=== PATIENT | female | born 2000 | race Caucasian/White ===

== ENCOUNTER 2020-01-16 19:00 | Emergency (ER) | payer OTHER ==
[~2020-01-16] VITALS: Ht 154.9 cm; Wt 52.2 kg
[2020-01-16 19:05] VITALS: BP 110/75
--- NOTE | 2020-01-16 19:27 | NUR ---
pt ambulated to bed 6.
--- NOTE | 2020-01-16 19:32 | NUR ---
BIB SELF REPORTS SHE HAS HAD A TAMPON IN HER VAGINA SINCE TUESDAY NIGHT AND HAS NOT BEEN UNABLE TO REMOVE IT HERSLEF. STATES IT HAS BEEN IN SINCE TUESDAY NIGHT. REPORTS HAVE VAGINAL PAIN AND FEVERS. NO OTHER SYMPTOMS REPORTED. NO BLEEDING OR DISCHARGE REPORTED. NO HX. SITTING UP IN BED, GIVEN GOWN.
--- NOTE | 2020-01-16 19:38 | NUR ---
PELVIC SET UP AT BEDSIDE.
--- NOTE | 2020-01-16 19:41 | NUR ---
Dr. Jay examining patient.
--- NOTE | 2020-01-16 20:00 | NUR ---
U/S TECH STATES PATIENT NEEDS A FULL BLADDER FOR EXAM. WILL COLLECT URINE SAMPLE AFTER U/S COMPLETED.
--- NOTE | 2020-01-16 20:14 | NUR ---
SPORTS ACTIVITIES FOUL JUDGE AT BEDSIDE
--- NOTE | 2020-01-16 20:37 | NUR ---
Ultrasound at bedside.
[2020-01-16 20:51] LABS: APPEARANCE,URINE CLEAR (CLEAR); BILIRUBIN,URINE NEGATIVE (NEGATIVE); BLOOD, URINE 1+ (NEGATIVE); LEUKOCYTE ESTERASE ,URINE NEGATIVE (NEGATIVE); NITRITE, URINE NEGATIVE (NEGATIVE); PH,URINE 5.5 (5.0-9.0); UGLUCOSE NEGATIVE (NEGATIVE)
[2020-01-16 20:52] LABS: BASOPHILS % (AUTO) 0.5 % (0.0-2.0); EOSINOPHILS # (AUTO) 0.1 K/uL (0-0.4); EOSINOPHILS % (AUTO) 2.5 % (0.0-4.0); HEMATOCRIT 37.3 % (36-48); HEMOGLOBIN 11.9 g/dL (12.0-16.0); LYMPHOCYTES # (AUTO) 1.8 K/uL (2.5-16.5); LYMPHOCYTES % (AUTO) 31.7 % (20.5-51.1); MEAN CORPUSCULAR HEMOGLOBIN 27 pg (27-31); MEAN CORPUSCULAR HGB CONC 32 g/dL (33-37); MEAN CORPUSCULAR VOLUME 84.9 fL (80-94); MONOCYTES # (AUTO) 0.6 K/uL (0.8-1.0); MONOCYTES % (AUTO) 10.7 % (1.7-9.3); NEUTROPHILS # (AUTO) 3.2 K/uL (1.8-7.7); NEUTROPHILS % (AUTO) 54.6 % (42.2-75.2); PLATELET COUNT (AUTO) 361 K/uL (140-450); RED BLOOD CELL COUNT(AUTO) 4.39 MIL/uL (4.20-5.40); RED CELL DISTRIBUTION WIDTH 17.7 % (11.6-13.7); WHITE BLOOD COUNT (AUTO) 5.8 K/uL (4.5-11.0)
[2020-01-16 20:53] LABS: COLOR,URINE STRAW (YELLOW)
[2020-01-16 21:08] LABS: RBC,URINE NONE SEEN /HPF (0-5); WBC,URINE 0-5 /HPF (0-5)
[2020-01-16 21:20] LABS: ALBUMIN 3.7 g/dL (3.4-5.0); ANION GAP 13.4 (8-16); CARBON DIOXIDE 28.5 mmol/L (21-32); CREATININE 0.7 mg/dL (0.6-1.3); POTASSIUM 3.9 mmol/L (3.5-5.1); TOTAL BILIRUBIN 0.3 mg/dL (0.0-1.0)
[2020-01-16] MEDS ORDERED: cefTRIAXone 250 MG in LIDOCAINE MPF 1% 0.9 ML IM ONE (21:35)
[2020-01-16] MEDS ORDERED: LIDOCAINE MPF 1% 5 ML ONE (21:37)
[2020-01-16] MEDS ORDERED: cefTRIAXone 250 MG VIAL ONE (21:37)
[2020-01-16 22:03] VITALS: BP 108/72
--- NOTE | 2020-01-16 22:03 | NUR ---
Patient discharged with v/s stable. Written and verbal after care instructions given and explained. Patient alert, oriented and verbalized understanding of instructions. Ambulatory with steady gait. All questions addressed prior to discharge. ID band removed. Patient advised to follow up with PMD. Rx of IBUPROFEN, DOCYCYCLINE given. Patient educated on indication of medication including possible reaction and side effects. Opportunity to ask questions provided and answered.
== END 2020-01-16 22:03 | disposition home or self-care (01) ==
LOC: MED 19:00
DX: N93.9 Abnormal uterine and vaginal bleeding, unspecified (principal); R30.0 Dysuria; R10.2 Pelvic and perineal pain
CPT/HCPCS: 36415; 76856; 80053; 81001; 81025; 84702; 85025; 93976; 96372; 99284; J0696; J2001; Q0092

== ENCOUNTER 2020-01-21 14:14 | Emergency (ER) | payer OTHER ==
[~2020-01-21] VITALS: Ht 154.9 cm; Wt 49.9 kg
[2020-01-21 14:46] VITALS: BP 133/86
[2020-01-21] MEDS ORDERED: NACL 0.9% 1,000 ML IV ONE ×3 (14:50→18:50)
[2020-01-21 16:03] LABS: BASOPHILS % (AUTO) 0.5 % (0.0-2.0); EOSINOPHILS % (AUTO) 0.5 % (0.0-4.0); HEMATOCRIT 38.9 % (36-48); HEMOGLOBIN 12.6 g/dL (12.0-16.0); LYMPHOCYTES # (AUTO) 1.3 K/uL (2.5-16.5); LYMPHOCYTES % (AUTO) 37.3 % (20.5-51.1); MEAN CORPUSCULAR HEMOGLOBIN 27 pg (27-31); MEAN CORPUSCULAR HGB CONC 33 g/dL (33-37); MEAN CORPUSCULAR VOLUME 84.4 fL (80-94); MONOCYTES # (AUTO) 0.2 K/uL (0.8-1.0); MONOCYTES % (AUTO) 6.3 % (1.7-9.3); NEUTROPHILS # (AUTO) 1.9 K/uL (1.8-7.7); NEUTROPHILS % (AUTO) 55.4 % (42.2-75.2); PLATELET COUNT (AUTO) 359 K/uL (140-450); RED BLOOD CELL COUNT(AUTO) 4.62 MIL/uL (4.20-5.40); RED CELL DISTRIBUTION WIDTH 18.7 % (11.6-13.7); WHITE BLOOD COUNT (AUTO) 3.4 K/uL (4.5-11.0)
[2020-01-21 16:23] LABS: ANION GAP 16.3 (8-16); CARBON DIOXIDE 26.3 mmol/L (21-32); CHLORIDE 107 mmol/L (98-107); CREATININE 0.7 mg/dL (0.6-1.3); GFR ARICAN-AMERICAN 139 mL/min (>90); GLUCOSE 102 mg/dL (74-106); POTASSIUM 3.6 mmol/L (3.5-5.1); SODIUM SERUM 146 mmol/L (136-145); UREA NITROGEN, BLOOD 4 mg/dL (7-18)
[2020-01-21 16:32] LABS: ALBUMIN 3.8 g/dL (3.4-5.0); ASPARTATE AMINOTRANSFERASE 34 U/L (15-37); TOTAL BILIRUBIN 0.2 mg/dL (0.0-1.0)
[2020-01-21 16:38] LABS: SALICYLATE < 2.8 mg/dL (2.8-20.0)
[2020-01-21 16:39] LABS: ACETAMINOPHEN < 0.5 ug/ml (10-30)
[2020-01-21 20:45] LABS: BARBITURATE, URINE NEGATIVE ng/ml (NEG <=200); BENZODIAZEPINE, URINE NEGATIVE ng/mL (NEG <=200); COCAINE, URINE POSITIVE ng/mL (NEG <=300)
[2020-01-21 20:46] LABS: CANNABINOID, URINE NEGATIVE ng/mL (NEG <=50); OPIATE, URINE NEGATIVE ng/mL (NEG <=2000); PHENCYCLIDINE SCREEN,URINE NEGATIVE ng/mL (NEG <=25)
[2020-01-21 20:50] LABS: APPEARANCE,URINE CLEAR (CLEAR); BILIRUBIN,URINE NEGATIVE (NEGATIVE); BLOOD, URINE NEGATIVE (NEGATIVE); LEUKOCYTE ESTERASE ,URINE NEGATIVE (NEGATIVE); NITRITE, URINE NEGATIVE (NEGATIVE); UGLUCOSE NEGATIVE (NEGATIVE)
[2020-01-21 21:00] LABS: COLOR,URINE STRAW (YELLOW)
[2020-01-21 21:49] VITALS: BP 110/72
== END 2020-01-21 21:51 | disposition home or self-care (01) ==
LOC: MED 14:14
DX: F17.210 Nicotine dependence, cigarettes, uncomplicated (principal); F32.9 Major depressive disorder, single episode, unspecified; Y90.8 Blood alcohol level of 240 mg/100 ml or more
CPT/HCPCS: 36415; 80053; 80305; 81003; 81025; 85025; 96360; 96361; 99283; G0480; G0482; J7030

== ENCOUNTER 2020-08-06 11:39 | Emergency (ER) | payer OTHER ==
[~2020-08-06] VITALS: Ht 162.6 cm; Wt 56.7 kg
[2020-08-06 11:48] VITALS: BP 132/68
--- NOTE | 2020-08-06 12:04 | NUR ---
19 YEAR OLD FEMALE COMPLAINS OF SOB, COUGH, AND SORE THROAT X YESTERDAY. PT STATES THAT SHE IS UNAWARE OF COVID CONTACT. PT AOX4, BREATHING EVEN AND UNLABORED, SPO2 100% ON RA, RR 20, LUNGS CLEAR BL, SKIN WARM AND DRY. BED IN LOWEST POSITION,LOCKED, BED RAIL UPX1. PMH - DENIES ALLERGIES - NKA
[2020-08-06] MEDS ORDERED: KETOROLAC 15 MG/ML VIAL IM STA (13:01)
--- NOTE | 2020-08-06 13:01 | NUR ---
PT ALERT AND AWAKE, BREATHING EVEN AND UNLABORED. NO DISTRESS NOTED.
[2020-08-06] MEDS ORDERED: diazePAM 5 MG TAB PO ONE (13:05)
--- NOTE | 2020-08-06 13:20 | NUR ---
X-Ray at bedside.
[2020-08-06 13:21] LABS: BASOPHILS % (AUTO) 0.7 % (0.0-2.0); EOSINOPHILS # (AUTO) 0.1 K/uL (0-0.4); EOSINOPHILS % (AUTO) 1.2 % (0.0-4.0); HEMATOCRIT 37.2 % (36-48); LYMPHOCYTES # (AUTO) 0.8 K/uL (2.5-16.5); LYMPHOCYTES % (AUTO) 12.2 % (20.5-51.1); MEAN CORPUSCULAR HEMOGLOBIN 26 pg (27-31); MEAN CORPUSCULAR HGB CONC 32 g/dL (33-37); MEAN CORPUSCULAR VOLUME 79.6 fL (80-94); MONOCYTES # (AUTO) 0.6 K/uL (0.8-1.0); MONOCYTES % (AUTO) 9.9 % (1.7-9.3); NEUTROPHILS # (AUTO) 4.8 K/uL (1.8-7.7); PLATELET COUNT (AUTO) 370 K/uL (140-450); RED BLOOD CELL COUNT(AUTO) 4.68 MIL/uL (4.20-5.40); RED CELL DISTRIBUTION WIDTH 19.1 % (11.6-13.7); WHITE BLOOD COUNT (AUTO) 6.3 K/uL (4.5-11.0)
[2020-08-06 13:37] LABS: ALBUMIN 3.5 g/dL (3.4-5.0); ANION GAP 16.3 (8-16); CARBON DIOXIDE 25.7 mmol/L (21-32); CREATININE 0.7 mg/dL (0.6-1.3); TOTAL BILIRUBIN 0.8 mg/dL (0.0-1.0)
--- NOTE | 2020-08-06 14:00 | NUR ---
Patient discharged with v/s stable. Written and verbal after care instructions about nonspecific chest pain given and explained. Patient verbalized understanding. Ambulatory with steady gait. All questions addressed prior to discharge. Advised to follow up with PMD.
[2020-08-06 14:01] VITALS: BP 114/83
== END 2020-08-06 14:00 | disposition home or self-care (01) ==
LOC: MED 11:39
DX: R07.9 Chest pain, unspecified (principal); E11.9 Type 2 diabetes mellitus without complications
CPT/HCPCS: 36415; 71045; 80053; 84484; 85025; 85379; 87426; 93005; 96372; 99285; J1885; Q0092

== ENCOUNTER 2020-12-11 18:49 | Emergency (ER) | payer OTHER ==
[~2020-12-11] VITALS: Ht 154.9 cm; Wt 49.9 kg
[2020-12-11 18:57] VITALS: BP 142/82
--- NOTE | 2020-12-11 19:03 | NUR ---
PATIENT AMBULATED TO BED 3.
--- NOTE | 2020-12-11 19:10 | NUR ---
PATIENT PRESENTS TO ED WITH C/O CP . PT STATES "I CANT BREATH" , O2 SAT = 100%. DENIES N/V/D; SKIN IS PINK/WARM/DRY; AAOX4, IS VERY ANXIOUS AND WRESTLESS. SPEECH IS RAPID. LUNGS CLEAR BL; HR EVEN, RAPID AND REGULAR; PT DENIES ANY FEVER, CP, SOB, OR COUGH AT THIS TIME; PATIENT STATES PAIN OF 10/10 AT THIS TIME; VSS; PATIENT POSITIONED FOR COMFORT; HOB ELEVATED; BEDRAILS UP X2; BED DOWN. ER MD MADE AWARE OF PT STATUS. PT STATES (+) METH USE TODAY AND DRINKS 2-3 MONSTER DRINKS
--- NOTE | 2020-12-11 19:15 | NUR ---
DR. KIM AT BEDSIDE FOR EXAM AND EVAL.
[2020-12-11] MEDS ORDERED: ONDANSETRON 4 MG/2 ML VIAL IVP ONE (19:20)
[2020-12-11] MEDS ORDERED: MIDAZOLAM 2 MG/2 ML VIAL IVP ONE (19:20)
--- NOTE | 2020-12-11 19:25 | NUR ---
AMBULATED TO WITH STEADY GAIT, RETURNED TO [facility]. ATTACHED TO CM = ST
--- NOTE | 2020-12-11 19:35 | NUR ---
18G SL ESTABLISHED LEFT A/C, LABS DRAWN
[2020-12-11 19:44] LABS: BASOPHILS % (AUTO) 0.2 % (0.0-2.0); EOSINOPHILS % (AUTO) 0.1 % (0.0-4.0); HEMATOCRIT 35.5 % (36-48); HEMOGLOBIN 11.1 g/dL (12.0-16.0); LYMPHOCYTES # (AUTO) 1.3 K/uL (2.5-16.5); LYMPHOCYTES % (AUTO) 17.9 % (20.5-51.1); MEAN CORPUSCULAR HEMOGLOBIN 25 pg (27-31); MEAN CORPUSCULAR HGB CONC 31 g/dL (33-37); MEAN CORPUSCULAR VOLUME 78.2 fL (80-94); MONOCYTES # (AUTO) 0.8 K/uL (0.8-1.0); MONOCYTES % (AUTO) 10.6 % (1.7-9.3); NEUTROPHILS # (AUTO) 5.2 K/uL (1.8-7.7); NEUTROPHILS % (AUTO) 71.2 % (42.2-75.2); PLATELET COUNT (AUTO) 445 K/uL (140-450); RED BLOOD CELL COUNT(AUTO) 4.54 MIL/uL (4.20-5.40); RED CELL DISTRIBUTION WIDTH 19.8 % (11.6-13.7); WHITE BLOOD COUNT (AUTO) 7.3 K/uL (4.5-11.0)
[2020-12-11 20:01] LABS: ALBUMIN 4.1 g/dL (3.4-5.0); ANION GAP 17.7 (8-16); CARBON DIOXIDE 21.5 mmol/L (21-32); CREATININE 0.8 mg/dL (0.6-1.3); POTASSIUM 3.2 mmol/L (3.5-5.1); TOTAL BILIRUBIN 0.4 mg/dL (0.0-1.0)
[2020-12-11 21:15] VITALS: BP 127/86
--- NOTE | 2020-12-11 21:15 | NUR ---
Patient discharged with v/s stable. Written and verbal after care instructions given and explained. Patient verbalized understanding. Ambulatory with steady gait. All questions addressed prior to discharge. Advised to follow up with PMD.
== END 2020-12-11 21:15 | disposition home or self-care (01) ==
LOC: MED 18:49
DX: R07.9 Chest pain, unspecified (principal); E11.9 Type 2 diabetes mellitus without complications; F12.10 Cannabis abuse, uncomplicated
CPT/HCPCS: 36415; 71045; 80053; 84484; 85025; 93005; 96374; 96375; 99285; J2250; J2405; 99284

== ENCOUNTER 2021-03-26 21:25 | Emergency (ER) | payer OTHER, SELFPAY ==
[~2021-03-26] VITALS: Ht 154.9 cm; Wt 47.2 kg
[2021-03-26 21:40] VITALS: BP 112/80
--- NOTE | 2021-03-26 21:40 | NUR ---
TO BED AMBULATORY
--- NOTE | 2021-03-26 21:47 | NUR ---
20 y.o female presents with abdominal pain. positive for N/V/D, fever, chills. new onset of c/p. 08/16 feels like pressure. patient tiok ibuprofen 2hrs ago, nyquil 4hrs ago. pt recently admited some time early this week and left AMA. PMH: Hernial repair 9yrs ago Allergies: nka
--- NOTE | 2021-03-26 22:18 | NUR ---
ERMD at bedside for examination
--- NOTE | 2021-03-26 22:43 | NUR ---
lab at bedside for blood collection
[2021-03-26 22:49] LABS: EOSINOPHILS # (AUTO) 0.2 K/uL (0-0.4); EOSINOPHILS % (AUTO) 4.9 % (0.0-4.0); HEMATOCRIT 34.7 % (36-48); HEMOGLOBIN 11.1 g/dL (12.0-16.0); LYMPHOCYTES # (AUTO) 1.1 K/uL (2.5-16.5); LYMPHOCYTES % (AUTO) 25.2 % (20.5-51.1); MEAN CORPUSCULAR HEMOGLOBIN 25 pg (27-31); MEAN CORPUSCULAR HGB CONC 32 g/dL (33-37); MEAN CORPUSCULAR VOLUME 78.3 fL (80-94); MONOCYTES # (AUTO) 0.7 K/uL (0.8-1.0); MONOCYTES % (AUTO) 15.1 % (1.7-9.3); NEUTROPHILS # (AUTO) 2.4 K/uL (1.8-7.7); NEUTROPHILS % (AUTO) 53.8 % (42.2-75.2); PLATELET COUNT (AUTO) 261 K/uL (140-450); RED BLOOD CELL COUNT(AUTO) 4.43 MIL/uL (4.20-5.40); RED CELL DISTRIBUTION WIDTH 19.8 % (11.6-13.7); WHITE BLOOD COUNT (AUTO) 4.5 K/uL (4.5-11.0)
[2021-03-26 23:04] LABS: ALBUMIN 3.3 g/dL (3.4-5.0); ANION GAP 14.8 (8-16); CARBON DIOXIDE 25.1 mmol/L (21-32); CREATININE 0.7 mg/dL (0.6-1.3); POTASSIUM 3.9 mmol/L (3.5-5.1); TOTAL BILIRUBIN 0.3 mg/dL (0.0-1.0)
--- NOTE | 2021-03-26 23:36 | NUR ---
Dr. Downey examining patient.
--- NOTE | 2021-03-27 00:15 | NUR ---
US AT BEDSIDE
[2021-03-27] MEDS: HYDROcodone/APAP 5/325 MG 1 TAB TAB PO ONE (00:17)
--- NOTE | 2021-03-27 00:48 | NUR ---
XRAY AT BEDSIDE
--- NOTE | 2021-03-27 00:50 | NUR ---
BRITTANY and RN at bedside for cultures of the pelvis and for wet mount
--- NOTE | 2021-03-27 01:00 | NUR ---
WET MOUNT AND CULTURE COLLECTED AND WALKED TO LAB. HAND GIVEN TO RALPH VILLANUEVA TECH.
--- NOTE | 2021-03-27 02:00 | NUR ---
Patient appears to be resting comfortably in bed. Vital Signs within normal limits. Respirations even and unlabored.
[2021-03-27] MEDS ORDERED: CLIN300C2 PO (02:44)
[2021-03-27 03:03] VITALS: BP 108/73
--- NOTE | 2021-03-27 03:03 | NUR ---
Patient discharged with v/s stable. Written and verbal after care instructions given and explained. Patient alert, oriented and verbalized understanding of instructions. Ambulatory with steady gait. All questions addressed prior to discharge. ID band removed. Patient advised to follow up with PMD. Rx of CLINDAMYCIN HCL given. Patient educated on indication of medication including possible reaction and side effects. Opportunity to ask questions provided and answered.
== END 2021-03-27 03:03 | disposition home or self-care (01) ==
LOC: MED 21:25
DX: N76.0 Acute vaginitis (principal); B96.89 Other specified bacterial agents as the cause of diseases classified elsewhere
CPT/HCPCS: 36415; 71045; 76830; 80053; 81002; 81025; 83690; 85025; 87210; 93005; 99285

== ENCOUNTER 2021-08-17 12:36 | Emergency (ER) | payer OTHER, SELFPAY ==
[~2021-08-17] VITALS: Ht 157.5 cm; Wt 53.1 kg
[~2021-08-17 12:36] MED LIST: CLIN300C2 PO
[2021-08-17 12:59] VITALS: BP 130/79
--- NOTE | 2021-08-17 13:08 | NUR ---
Pt ambulated to bed 09.
--- NOTE | 2021-08-17 13:22 | NUR ---
DR DOMINGUEZ EXAMINING PT
[2021-08-17 13:55] VITALS: BP 130/79
--- NOTE | 2021-08-17 13:55 | NUR ---
Patient discharged with v/s stable. Written and verbal after care instructions given and explained. Patient alert, oriented and verbalized understanding of instructions. Ambulatory with steady gait. All questions addressed prior to discharge. ID band removed. Patient advised to follow up with PMD. Opportunity to ask questions provided and answered.
== END 2021-08-17 13:55 | disposition home or self-care (01) ==
LOC: MED 12:36
DX: S16.1XXA Strain of muscle, fascia and tendon at neck level, initial encounter (principal); J45.909 Unspecified asthma, uncomplicated; Z79.899 Other long term (current) drug therapy; W19.XXXA Unspecified fall, initial encounter; Y93.89 Activity, other specified; Y92.89 Other specified places as the place of occurrence of the external cause; Y99.8 Other external cause status
CPT/HCPCS: 81002; 81025; 99282

== ENCOUNTER 2022-10-28 10:51 | Emergency (ER) | payer OTHER ==
[~2022-10-28] VITALS: Ht 154.9 cm; Wt 52.2 kg
--- NOTE | 2022-10-28 11:17 | NUR ---
pt to phong hardin
[2022-10-28 11:19] VITALS: BP 116/63
[2022-10-28 12:19] LABS: BASOPHILS % (AUTO) 0.3 % (0.0-2.0); EOSINOPHILS # (AUTO) 0.1 K/uL (0-0.4); HEMATOCRIT 33.6 % (36-48); HEMOGLOBIN 10.6 g/dL (12.0-16.0); LYMPHOCYTES # (AUTO) 0.8 K/uL (2.5-16.5); MEAN CORPUSCULAR HEMOGLOBIN 24 pg (27-31); MEAN CORPUSCULAR HGB CONC 32 g/dL (33-37); MEAN CORPUSCULAR VOLUME 75.2 fL (80-94); MONOCYTES # (AUTO) 0.5 K/uL (0.8-1.0); NEUTROPHILS # (AUTO) 4.3 K/uL (1.8-7.7); NEUTROPHILS % (AUTO) 75.7 % (42.2-75.2); PLATELET COUNT (AUTO) 405 K/uL (140-450); RED BLOOD CELL COUNT(AUTO) 4.46 MIL/uL (4.20-5.40); RED CELL DISTRIBUTION WIDTH 24.1 % (11.6-13.7); WHITE BLOOD COUNT (AUTO) 5.7 K/uL (4.8-10.8)
--- NOTE | 2022-10-28 12:35 | NUR ---
PATIENT AMBULATED TO BED 12.
[2022-10-28 12:38] LABS: ALBUMIN 3.7 g/dL (3.4-5.0); ANION GAP 13.2 (8-16); CARBON DIOXIDE 27.4 mmol/L (21-32); CREATININE 0.6 mg/dL (0.6-1.3); POTASSIUM 3.6 mmol/L (3.5-5.1)
--- NOTE | 2022-10-28 13:02 | NUR ---
ULTRASOUND AT BEDSIDE
[2022-10-28 13:35] LABS: BILIRUBIN,URINE 2+ (NEGATIVE); BLOOD, URINE 3+ (NEGATIVE); COLOR,URINE YELLOW (YELLOW); LEUKOCYTE ESTERASE ,URINE TRACE (NEGATIVE); NITRITE, URINE POSITIVE (NEGATIVE); UGLUCOSE TRACE (NEGATIVE)
[2022-10-28 13:43] LABS: APPEARANCE,URINE SLIGHTLY HAZY (CLEAR)
[2022-10-28 13:44] LABS: RBC,URINE 0-5 /HPF (0-5)
[2022-10-28] MEDS ORDERED: NITR100C7 PO (14:22)
[2022-10-28 14:40] VITALS: BP 114/82
--- NOTE | 2022-10-28 14:40 | NUR ---
Patient discharged with v/s stable. Written and verbal after care instructions ABOUT UTI given and explained. Patient alert, oriented and verbalized understanding of instructions. Ambulatory with steady gait. All questions addressed prior to discharge. ID band removed. Patient advised to follow up with PMD. Rx of MACROBID given. Patient educated on indication of medication including possible reaction and side effects. Opportunity to ask questions provided and answered.
== END 2022-10-28 14:40 | disposition home or self-care (01) ==
LOC: MED 10:51
DX: O23.41 Unspecified infection of urinary tract in pregnancy, first trimester (principal); O20.8 Other hemorrhage in early pregnancy; J45.909 Unspecified asthma, uncomplicated; Z79.899 Other long term (current) drug therapy
CPT/HCPCS: 36415; 76817; 80053; 81001; 81025; 84702; 85025; 86900; 86901; 87086; 99284; Q0092

== ENCOUNTER 2024-07-06 13:07 | Emergency (ER) | payer MEDICAID, OTHER ==
[~2024-07-06] VITALS: Ht 154.9 cm; Wt 54.4 kg
[~2024-07-06 13:07] MED LIST changes: +NITR100C7 PO
[2024-07-06 13:11] VITALS: BP 94/60; PULSE 88; RESP 18; TEMP 98.3; O2SAT 98
--- NOTE | 2024-07-06 13:17 | NUR ---
JO-ANN ALS TO ER BED 1
[2024-07-06 13:30] VITALS: O2SAT 98
--- NOTE | 2024-07-06 13:30 | NUR ---
23YO FEMALE PT [facility] INTOXICATION. PER EMS, PT FOUND IN ALLEY W/ EMPTY ALCOHOL CANS. ON ARRIVAL, PT AAOX1 TO PLACE W/ DELAYED MUMBLED SPEECH. AMB W/ UNSTEADY GAIT. +DIZZINESS. DENIES N/V/D, CHEST PAIN, SOB, INJURY OR CHANGE IN VISION. ON [employer]ER. BED AT LOWEST POSITION, BED RAILS UPX2. CALL LIGHT WITHIN REACH. HX: UNOBTAINABLE ALLERGIES: UNOBTAINABLE
--- NOTE | 2024-07-06 13:47 | NUR ---
MD WOOD AT BEDSIDE FOR EVALUATION
--- NOTE | 2024-07-06 13:50 | NUR ---
pt amb w/ assist to restroom Addendum: 07/06/24 at 1407 by PHSEP pt amb w/ assist back to bed.
[2024-07-06 15:10] VITALS: BP 109/61; PULSE 72; RESP 16; TEMP 98.3; O2SAT 99
--- NOTE | 2024-07-06 15:22 | NUR ---
pt at rest w/ eyes closed. respirations even and unlabored. bed at lowest position, bed rails upx2. call light within reach.
--- NOTE | 2024-07-06 17:06 | NUR ---
pt AAOx3 . amb w/ steady gait. denies dizziness or nausea at this time.
--- NOTE | 2024-07-06 17:11 | NUR ---
Patient discharged with v/s stable. Written and verbal after care instructions given FOR ALC INTOXICATION Patient verbalized understanding. Ambulatory with steady gait. All questions addressed prior to discharge. Advised to follow up with PMD.
--- NOTE | 2024-07-06 17:46 | NUR ---
Chart checked and completed. The patient's care was reviewed and supervised by SIMA HAYS RN.
== END 2024-07-06 17:11 | disposition home or self-care (01) ==
LOC: MED 13:07
DX: F10.129 Alcohol abuse with intoxication, unspecified (principal); Y90.9 Presence of alcohol in blood, level not specified; J45.909 Unspecified asthma, uncomplicated; Z79.899 Other long term (current) drug therapy
CPT/HCPCS: 99283

== ENCOUNTER 2024-07-18 23:30 | Emergency (ER) | payer MEDICAID ==
[~2024-07-18] VITALS: Ht 154.9 cm; Wt 47.2 kg
[2024-07-18 23:46] VITALS: BP 137/111; PULSE 88; RESP 20; TEMP 96.7; O2SAT 98
[2024-07-19] MEDS: ONDANSETRON 4 MG/2 ML VIAL IVP ONE ×2 (00:43→06:45)
[2024-07-19] MEDS: MORPHINE SULFATE 4 MG/ML SYR IVP ONE ×2 (00:44→06:45)
[2024-07-19] MEDS: NACL 0.9% 1,000 ML IV ONE (00:44)
[2024-07-19 00:47] LABS: BASOPHILS % (AUTO) 0.2 % (0.0-2.0); HEMATOCRIT 35.8 % (36-48); HEMOGLOBIN 11.8 g/dL (12.0-16.0); LYMPHOCYTES # (AUTO) 0.9 K/uL (2.5-16.5); LYMPHOCYTES % (AUTO) 7.5 % (20.5-51.1); MEAN CORPUSCULAR HEMOGLOBIN 28 pg (27-31); MEAN CORPUSCULAR HGB CONC 33 g/dL (33-37); MEAN CORPUSCULAR VOLUME 84.2 fL (80-94); MONOCYTES % (AUTO) 9.1 % (1.7-9.3); NEUTROPHILS # (AUTO) 9.6 K/uL (1.8-7.7); NEUTROPHILS % (AUTO) 83.2 % (42.2-75.2); PLATELET COUNT (AUTO) 301 K/uL (140-450); RED BLOOD CELL COUNT(AUTO) 4.25 MIL/uL (4.20-5.40); RED CELL DISTRIBUTION WIDTH 28.3 % (11.6-13.7); WHITE BLOOD COUNT (AUTO) 11.5 K/uL (4.8-10.8)
[2024-07-19 00:51] VITALS: O2SAT 100
[2024-07-19] MEDS: LORazepam 2 MG/ML VIAL IVP ONE (00:51)
[2024-07-19 01:04] LABS: ANION GAP 17.9 (8-16); CALCIUM 9.3 mg/dL (8.5-10.1); CARBON DIOXIDE 24.2 mmol/L (21-32); CREATININE 0.8 mg/dL (0.6-1.3); POTASSIUM 3.1 mmol/L (3.5-5.1)
[2024-07-19 01:08] LABS: ALANINE AMINOTRANSFERASE 46 U/L (12-78); ALBUMIN 3.7 g/dL (3.4-5.0); ALKALINE PHOSPHATASE 116 U/L (50-136); ASPARTATE AMINOTRANSFERASE 43 U/L (15-37); BILIRUBIN,DIRECT 0.2 mg/dL (0.0-0.3); TOTAL BILIRUBIN 1.1 mg/dL (0.0-1.0); TOTAL PROTEIN, SERUM 7.6 g/dL (6.4-8.2)
[2024-07-19 02:50] VITALS: O2SAT 100
[2024-07-19 05:55] VITALS: O2SAT 100
[2024-07-19 06:23] LABS: APPEARANCE,URINE CLEAR (CLEAR); BILIRUBIN,URINE NEGATIVE (NEGATIVE); BLOOD, URINE NEGATIVE (NEGATIVE); COLOR,URINE YELLOW (YELLOW); LEUKOCYTE ESTERASE ,URINE NEGATIVE (NEGATIVE); NITRITE, URINE NEGATIVE (NEGATIVE); PH,URINE 8.5 (5.0-9.0); PROTEIN,URINE TRACE (NEGATIVE); UGLUCOSE NEGATIVE (NEGATIVE); UROBILINOGEN,URINE 0.2 EU/dL (0.2 - 1)
[2024-07-19 07:33] LABS: AMPHETAMINE, URINE NEGATIVE ng/ml (NEG <=1000); BARBITURATE, URINE NEGATIVE ng/ml (NEG <=200); BENZODIAZEPINE, URINE POSITIVE ng/mL (NEG <=200); CANNABINOID, URINE POSITIVE ng/mL (NEG <=50); COCAINE, URINE NEGATIVE ng/mL (NEG <=300); OPIATE, URINE POSITIVE ng/mL (NEG <=2000); PHENCYCLIDINE SCREEN,URINE NEGATIVE ng/mL (NEG <=25)
[2024-07-19] MEDS: POTASSIUM CHLORIDE 10 MEQ TABER PO ONE (09:09)
[2024-07-19] MEDS ORDERED: ACET500T99 PO (09:43)
[2024-07-19] MEDS ORDERED: METO-485 PO (09:43)
[2024-07-19] MEDS ORDERED: POTA10TA70 PO (09:43)
[2024-07-19 10:00] VITALS: BP 134/81; PULSE 83; RESP 13; O2SAT 98
== END 2024-07-19 10:00 | disposition home or self-care (01) ==
LOC: MED 23:30
DX: K52.9 Noninfective gastroenteritis and colitis, unspecified (principal); R07.9 Chest pain, unspecified; R11.2 Nausea with vomiting, unspecified; J45.909 Unspecified asthma, uncomplicated; Z79.2 Long term (current) use of antibiotics; Z79.899 Other long term (current) drug therapy
CPT/HCPCS: 36415; 71045; 71275; 76856; 80048; 80076; 80305; 81003; 83880; 84484; 84702; 85025; 85379; 93005; 93976; 96361; 96374; 96375; 96376; 99285; J2060; J2270; J2405; J7030; Q0092; Q9967

== ENCOUNTER 2024-08-22 03:58 | Emergency (ER) | payer MEDICAID ==
[~2024-08-22] VITALS: Ht 157.5 cm; Wt 54.4 kg
[~2024-08-22 03:58] MED LIST changes: +ACET500T99 PO; +METO-485 PO; +POTA10TA70 PO
[2024-08-22 04:12] VITALS: BP 135/91; PULSE 112; RESP 18; TEMP 98.2; O2SAT 96
[2024-08-22] MEDS ORDERED: ONDANSETRON 4 MG/2 ML VIAL ONE (04:39)
[2024-08-22] MEDS: ONDANSETRON 4 MG/2 ML VIAL IVP ONE (04:47)
[2024-08-22] MEDS: NACL 0.9% 1,000 ML IV ONE (04:48)
[2024-08-22 05:04] LABS: BASOPHILS % (AUTO) 0.9 % (0.0-2.0); EOSINOPHILS % (AUTO) 0.8 % (0.0-4.0); HEMATOCRIT 39.3 % (36-48); HEMOGLOBIN 13.1 g/dL (12.0-16.0); LYMPHOCYTES # (AUTO) 2.6 K/uL (2.5-16.5); LYMPHOCYTES % (AUTO) 62.6 % (20.5-51.1); MEAN CORPUSCULAR HEMOGLOBIN 29 pg (27-31); MEAN CORPUSCULAR HGB CONC 33 g/dL (33-37); MONOCYTES # (AUTO) 0.3 K/uL (0.8-1.0); MONOCYTES % (AUTO) 8.2 % (1.7-9.3); NEUTROPHILS # (AUTO) 1.2 K/uL (1.8-7.7); NEUTROPHILS % (AUTO) 27.5 % (42.2-75.2); PLATELET COUNT (AUTO) 361 K/uL (140-450); RED BLOOD CELL COUNT(AUTO) 4.47 MIL/uL (4.20-5.40); WHITE BLOOD COUNT (AUTO) 4.2 K/uL (4.8-10.8)
[2024-08-22 05:08] LABS: APPEARANCE,URINE CLEAR (CLEAR); BILIRUBIN,URINE NEGATIVE (NEGATIVE); BLOOD, URINE NEGATIVE (NEGATIVE); COLOR,URINE YELLOW (YELLOW); LEUKOCYTE ESTERASE ,URINE 1+ (NEGATIVE); NITRITE, URINE NEGATIVE (NEGATIVE); PH,URINE 8.5 (5.0-9.0); PROTEIN,URINE TRACE (NEGATIVE); UGLUCOSE NEGATIVE (NEGATIVE); UROBILINOGEN,URINE 0.2 EU/dL (0.2 - 1)
[2024-08-22 05:10] LABS: RBC,URINE 0-5 /HPF (0-5)
[2024-08-22 05:11] LABS: ANION GAP 15.1 (8-16); BACTERIA,URINE >30 (MANY) /HPF (None Seen); CALCIUM 8.2 mg/dL (8.5-10.1); CARBON DIOXIDE 28.3 mmol/L (21-32); CREATININE 0.7 mg/dL (0.6-1.3); MUCUS,URINE 1+ /LPF (None Seen); POTASSIUM 3.4 mmol/L (3.5-5.1)
[2024-08-22 05:17] LABS: ALBUMIN 3.6 g/dL (3.4-5.0); BILIRUBIN,DIRECT 0.1 mg/dL (0.0-0.3); TOTAL BILIRUBIN 0.2 mg/dL (0.0-1.0); TOTAL PROTEIN, SERUM 7.8 g/dL (6.4-8.2)
[2024-08-22] MEDS ORDERED: ONDA-188 SL (05:44)
[2024-08-22] MEDS ORDERED: CEPH-588 PO (05:44)
[2024-08-22] MEDS: KETOROLAC 30 MG/ML VIAL IVP ONE (05:46)
[2024-08-22 06:12] VITALS: BP 135/91; PULSE 112; RESP 18; TEMP 98.2; O2SAT 96
== END 2024-08-22 06:12 | disposition home or self-care (01) ==
LOC: MED 03:58
DX: N39.0 Urinary tract infection, site not specified (principal); K29.20 Alcoholic gastritis without bleeding; F10.10 Alcohol abuse, uncomplicated; J45.909 Unspecified asthma, uncomplicated; Z79.899 Other long term (current) drug therapy; Y90.8 Blood alcohol level of 240 mg/100 ml or more
CPT/HCPCS: 36415; 74176; 80048; 80076; 81001; 81025; 83690; 84703; 85025; 87086; 96361; 96374; 96375; 99285; G0482; J1885; J2405

== ENCOUNTER 2024-08-22 17:59 | Emergency (ER) | payer MEDICAID ==
[~2024-08-22] VITALS: Ht 154.9 cm; Wt 50.0 kg
[~2024-08-22 17:59] MED LIST changes: +CEPH-588 PO; +ONDA-188 SL
[2024-08-22 18:12] VITALS: BP 141/95; PULSE 130; RESP 24; TEMP 97.6; O2SAT 94
[2024-08-22 18:29] VITALS: TEMP 97.6
[2024-08-22] MEDS: NACL 0.9% 1,000 ML IV ONE (18:37)
[2024-08-22] MEDS ORDERED: diphenhydrAMINE 50 MG/ML VIAL ONE (18:38)
[2024-08-22 18:41] LABS: BASOPHILS # (AUTO) 0.1 K/uL (0.00-0.22); BASOPHILS % (AUTO) 1.1 % (0.0-2.0); EOSINOPHILS % (AUTO) 0.4 % (0.0-4.0); HEMATOCRIT 36.3 % (36-48); HEMOGLOBIN 12.1 g/dL (12.0-16.0); LYMPHOCYTES # (AUTO) 1.3 K/uL (2.5-16.5); LYMPHOCYTES % (AUTO) 26.7 % (20.5-51.1); MEAN CORPUSCULAR HEMOGLOBIN 29 pg (27-31); MEAN CORPUSCULAR HGB CONC 33 g/dL (33-37); MEAN CORPUSCULAR VOLUME 88.1 fL (80-94); MONOCYTES # (AUTO) 0.4 K/uL (0.8-1.0); MONOCYTES % (AUTO) 8.1 % (1.7-9.3); NEUTROPHILS # (AUTO) 3.2 K/uL (1.8-7.7); NEUTROPHILS % (AUTO) 63.7 % (42.2-75.2); PLATELET COUNT (AUTO) 362 K/uL (140-450); RED BLOOD CELL COUNT(AUTO) 4.12 MIL/uL (4.20-5.40); RED CELL DISTRIBUTION WIDTH 19.8 % (11.6-13.7)
[2024-08-22] MEDS ORDERED: FAMOTIDINE 20 MG/2 ML VIAL ONE (18:41)
[2024-08-22] MEDS: FAMOTIDINE 20 MG/2 ML VIAL IVP ONE (18:44)
[2024-08-22 18:47] LABS: ANION GAP 19.3 (8-16); CALCIUM 8.4 mg/dL (8.5-10.1); CARBON DIOXIDE 23.3 mmol/L (21-32); CREATININE 0.7 mg/dL (0.6-1.3); POTASSIUM 3.6 mmol/L (3.5-5.1)
[2024-08-22] MEDS: PROCHLORPERAZINE 10 MG/2 ML VIAL IVP ONE (18:48)
[2024-08-22] MEDS: diphenhydrAMINE 50 MG/ML VIAL IVP ONE (18:49)
[2024-08-22 18:54] LABS: ALBUMIN 3.6 g/dL (3.4-5.0); BILIRUBIN,DIRECT 0.2 mg/dL (0.0-0.3); TOTAL BILIRUBIN 0.5 mg/dL (0.0-1.0); TOTAL PROTEIN, SERUM 7.5 g/dL (6.4-8.2)
[2024-08-22 19:39] LABS: AMPHETAMINE, URINE NEGATIVE ng/ml (NEG <=1000); BARBITURATE, URINE NEGATIVE ng/ml (NEG <=200); BENZODIAZEPINE, URINE NEGATIVE ng/mL (NEG <=200); CANNABINOID, URINE POSITIVE ng/mL (NEG <=50); COCAINE, URINE NEGATIVE ng/mL (NEG <=300); OPIATE, URINE NEGATIVE ng/mL (NEG <=2000); PHENCYCLIDINE SCREEN,URINE NEGATIVE ng/mL (NEG <=25)
[2024-08-22] MEDS: KETOROLAC 30 MG/ML VIAL IVP ONE (19:43)
[2024-08-22 19:47] VITALS: BP 138/86; PULSE 113; RESP 22; O2SAT 97
[2024-08-22] MEDS: HALOPERIDOL IM 5 MG/ML VIAL IM ONE (20:00)
== END 2024-08-22 21:14 | disposition home or self-care (01) ==
LOC: MED 17:59
DX: K29.20 Alcoholic gastritis without bleeding (principal); F12.90 Cannabis use, unspecified, uncomplicated; R00.0 Tachycardia, unspecified; F41.9 Anxiety disorder, unspecified; J45.909 Unspecified asthma, uncomplicated; Z98.890 Other specified postprocedural states; Z79.899 Other long term (current) drug therapy
CPT/HCPCS: 36415; 80048; 80076; 80305; 83690; 85025; 96361; 96372; 96374; 96375; 99284; G0482; J0780; J1200; J1630; J1885; J3490; J7030